=== PATIENT | male | born 1955 | race Caucasian/White ===

== ENCOUNTER 2020-10-05 04:10 | Inpatient (IN) ==
[2020-10-05] MEDS ORDERED: SODIUM CHLORIDE 0.9% 1,000 ML IV STA (04:28)
[2020-10-05] MEDS ORDERED: ONDANSETRON 4 MG/2 ML VIAL IV ONE (04:30)
[2020-10-05] MEDS ORDERED: MORPHINE 2 MG/1 ML SYRINGE IV STA (04:40)
[2020-10-05 05:03] LABS: Basophils # 0.1 10*3/uL (0.0-0.2); Basophils % 0.6 % (0.0-0.8); Eosinophils # 0.2 10*3/uL (0.0-0.87); Hematocrit 46.9 VOL% (42.0-52.0); Hemoglobin 16.4 GM/DL (14.0-18.0); Immature Granulocytes % 0.5 %; Immature Granulocytes Absolute 0.04 #; Lymphocytes # 1.2 10*3/uL (1.4-4.0); Lymphocytes % 13.7 % (21.2-54.2); Mean Corpuscular Volume 93.8 FL (87-102); Mean Platelet Volume 9.8 FL (9.6-12.0); Neutrophils % 75.2 % (38.7-73.9); Platelet Count 237 T/CUMM (130-400); Red Cell Distribution Width 12.4 % (9.3-17.3); White Blood Count 8.5 T/CUMM (4-12)
[2020-10-05 05:28] LABS: Albumin 4.2 G/DL (3.4-5.0); Bilirubin,Total 1.8 MG/DL (0.20-1.00); Calcium 8.9 MG/DL (8.5-10.1); Osmolality,Calculated 281.8 MOS/KG (273-304); Total Protein 7.4 G/DL (6.4-8.2)
[2020-10-05] MEDS ORDERED: KETOROLAC 30 MG/1 ML VIAL IV STA (05:46)
[2020-10-05] MEDS ORDERED: KETOROLAC 30 MG/1 ML VIAL IV PRN (06:31)
[2020-10-05] MEDS ORDERED: hydrALAZINE 20 MG/1 ML VIAL IV PRN (06:34)
[2020-10-05] MEDS ORDERED: ONDANSETRON 4 MG/2 ML VIAL IV PRN (06:35)
[2020-10-05] MEDS ORDERED: LORazepam 2 MG/1 ML VIAL IV PRN (06:35)
[2020-10-05 06:40] LABS: Bilirubin,Urine Negative (Negative); Blood, Urine Large mg/dL (Negative); Glucose,Urine (UA) 50 mg/dL (Negative); Ketones,Urine Negative (Negative); Mucus,Urine Occasional /LPF (Occasional); Nitrite,Urine Negative (Negative); Protein,Urine Negative; RBC,Urine 153 /HPF (0-4); Urine Appearance CLEAR (Clear); Urine Color Straw (Yellow); Urine Urobilinogen < 2.0 EU/DL (0.2-1.0)
[2020-10-05] MEDS ORDERED: SODIUM CHLORIDE 0.9% 1,000 ML IV SCH (07:00)
[2020-10-05] MEDS: ENOXAPARIN 40 MG/0.4 ML SYRINGE SUBCUT SCH (08:07)
[2020-10-05] MEDS: PANTOPRAZOLE 40 MG VIAL IV SCH (09:12)
[2020-10-05] MEDS: MORPHINE 2 MG/1 ML SYRINGE IV PRN ×3 (09:15→21:37)
[2020-10-06] MEDS: MORPHINE 2 MG/1 ML SYRINGE IV PRN (04:25)
[2020-10-06 05:04] LABS: Basophils % 0.5 % (0.0-0.8); Eosinophils # 0.2 10*3/uL (0.0-0.87); Hematocrit 41.3 VOL% (42.0-52.0); Hemoglobin 13.7 GM/DL (14.0-18.0); Immature Granulocytes % 0.3 %; Immature Granulocytes Absolute 0.02 #; Lymphocytes # 2.1 10*3/uL (1.4-4.0); Lymphocytes % 27.3 % (21.2-54.2); Mean Corpuscular HGB Conc 33.2 GM/DL (32-36); Mean Corpuscular Volume 95.4 FL (87-102); Monocytes % 12.8 % (1.7-12.7); Neutrophils % 56.1 % (38.7-73.9); Platelet Count 188 T/CUMM (130-400); Red Blood Count 4.33 MC/CUMM (3.8-5.5); Red Cell Distribution Width 12.4 % (9.3-17.3); White Blood Count 7.6 T/CUMM (4-12)
[2020-10-06 05:34] LABS: Albumin 3.2 G/DL (3.4-5.0); Bilirubin,Direct 0.35 MG/DL (0.0-0.20); Bilirubin,Indirect 1.8 MG/DL (0.0-1.0); Bilirubin,Total 2.1 MG/DL (0.20-1.00); Total Protein 5.8 G/DL (6.4-8.2)
[2020-10-06 05:55] LABS: Albumin 3.3 G/DL (3.4-5.0); Bilirubin,Total 2.2 MG/DL (0.20-1.00); Calcium 8.4 MG/DL (8.5-10.1); Osmolality,Calculated 284.3 MOS/KG (273-304); Potassium 3.6 MMOL/L (3.5-5.1); Total Protein 5.7 G/DL (6.4-8.2)
[2020-10-06] MEDS: ENOXAPARIN 40 MG/0.4 ML SYRINGE SUBCUT SCH (06:01)
[2020-10-06 06:10] LABS: Hepatitis B Core IgM Quant 0.08 Index; Hepatitis B Surface Ag Quant < 0.10 Index; Hepatitis B Surface Ag Result Non-Reactive (NonReactive); Hepatitis C Virus Ab Quant 0.06 Index; Hepatitis C Virus Ab Result Non-Reactive (NonReactive)
[2020-10-06] MEDS: PANTOPRAZOLE 40 MG VIAL IV SCH (08:48)
[2020-10-06 11:11] VITALS: BP 130/85
== END 2020-10-06 14:10 | disposition home or self-care (01) | DRG 694 ==
LOC: SUATTDRO → N.ED 04:10 → N.EDINP 06:30 → N.5E 08:07
PROVIDERS: ADMIT Internal Medicine; ATTEND Internal Medicine